=== PATIENT | female | born 1985 | race Caucasian/White ===

== ENCOUNTER 2016-08-09 10:45 | Emergency (ER) | payer OTHER ==
[~2016-08-09] VITALS: Ht 165.1 cm; Wt 86.0 kg
[2016-08-09 10:48] VITALS: Ht 165.1 cm; Wt 86.0 kg
[2016-08-09] MEDS ORDERED: morphine 4 MG/ML VIAL IV STA (11:13)
[2016-08-09] MEDS ORDERED: SOD CHLORIDE 0.9% 1,000 ML IV STA (11:13)
[2016-08-09] MEDS ORDERED: ONDANSETRON 4 MG INJ IV STA (11:13)
[2016-08-09 11:41] LABS: ADD SCAN DIFF NO
[2016-08-09 11:43] LABS: BASOPHILS % 0.3 % (0.0-2.0); EOSINOPHILS # 0.1 10^3/ul (0.0-0.5); EOSINOPHILS % 0.6 % (0.0-7.0); HEMATOCRIT 41.8 % (37.0-47.0); HEMOGLOBIN 14.2 g/dl (12.0-16.0); LYMPHOCYTES % 32.8 % (15.0-51.0); MEAN CORPUSCULAR HEMOGLOBIN 29.5 pg (29.0-33.0); MEAN CORPUSCULAR VOLUME 86.7 fl (82.0-101.0); MEAN PLATELET VOLUME 9.9 fl (7.4-10.4); MONOCYTE # 0.5 10^3/ul (0.3-0.9); NEUTROPHIL # 5.4 10^3/ul (1.6-7.5); NEUTROPHILS % 59.7 % (39.0-77.0); PLATELET COUNT 271 10^3/UL (140-415); RED BLOOD COUNT 4.82 10^6/ul (4.20-5.40); RED CELL DISTRIBUTION WIDTH 12.9 % (11.5-14.5)
[2016-08-09 11:54] LABS: ADD UMIC YES; URINE BILIRUBIN (Dip) NEGATIVE (NEGATIVE); URINE BLOOD (Dip) NEGATIVE (NEGATIVE); URINE COLOR LT. YELLOW (YELLOW); URINE GLUCOSE (Dip) NEGATIVE (NEGATIVE); URINE KETONES (Dip) NEGATIVE (NEGATIVE); URINE LEUKOCYTE ESTERASE (Dip) 1+ (NEGATIVE); URINE NITRITE (Dip) NEGATIVE (NEGATIVE); URINE TOTAL PROTEIN (Dip) NEGATIVE (NEGATIVE); URINE UROBILINOGEN (Dip) 0.2 E.U./dL (0.1-1.0)
[2016-08-09 12:01] LABS: ALBUMIN 5.1 g/dl (3.3-4.9); ALBUMIN/GLOBULIN RATIO 1.45; BILIRUBIN,INDIRECT 0.2 mg/dl (0-1.1); BILIRUBIN,TOTAL 0.2 mg/dl (0.2-1.3); CALCIUM 9.4 mg/dl (8.4-10.2); CREATININE 0.74 mg/dl (0.44-1.00); POTASSIUM 3.9 mmol/L (3.5-5.1); TOTAL PROTEIN 8.6 g/dl (6.1-8.1)
--- NOTE | 2016-08-09 12:07 | RADRPT ---
PROCEDURE: Right upper quadrant abdominal ultrasound. CLINICAL INDICATION: Abdominal pain TECHNIQUE: Georges scale and color doppler ultrasound images of the right upper quadrant. COMPARISON: None FINDINGS: Pancreas: Visualized portions appear of normal echogenicity, no focal lesions. Liver: Morphology: Normal in size and contour. Echogenicity: Mildly increased echogenicity of the liver suggestive of hepatic steatosis. Focal lesions: 5.1 cm hypoechoic lesion present within the right lobe of the liver. Main portal vein: Patent with hepatopetal flow. Biliary System: Normal appearing gallbladder wall. 1.5 cm gallstone in the neck of the gallbladder. No intrahepatic biliary dilatation. Common bile duct measures 3.1 mm in maximal dimension. Kidneys: Right 10.9 cm in length. Right renal cortical thickness is preserved. Normal echogenicity. No hydronephrosis. No renal calculi. No focal lesions. No free fluid identified. IMPRESSION: Cholelithiasis without evidence of abnormal gallbladder wall thickening to suggest cholecystitis. Normal caliber of the intrahepatic and extrahepatic biliary system. 5.1 cm hypoechoic lesion within the right lobe of the liver. MRI of the liver with liver mass alexia col recommended for further evaluation. RPTAT: AADD .Tio Cortés MD, MD Date Time Electronically viewed and signed by .Tio Cortés MD, on 08/09/2016 12:07 .B/
--- NOTE | 2016-08-09 12:13 | ERD ---
ER Documentation Chief Complaint Date/Time DATE: 08/09/16 TIME: 12:10 Chief Complaint Complains of right upper quadrant abdominal pain HPI Patient is a 31-year-old female who presents to the ED with right upper quadrant pain that radiates to her back on and off for the last 3-4 months. She states that she was diagnosed with a liver tumor and had a recent biopsy and is planning on having another biopsy regarding this. She is being followed by her surgeon. States that the pain comes and goes in her right upper quadrant. States that she is sometimes nauseous but no vomiting. Last bowel movement was yesterday. No signs of constipation or diarrhea. She does not have a decrease in appetite and is tolerating food and fluids. Denies headache or dizziness. Denies chest pain or cough or shortness of breath. Denies leg pain or leg swelling. Patient had a recent CT scan 05/2016. ROS All systems reviewed and are negative except as per history of present illness. Medications Home Meds Active Scripts Nitrofurantoin Monohyd Macrocr* (Macrobid*) 100 Mg Capsr, 100 MG PO BID for 7 Days, CAP Prov:JESUS PINEDA-C 08/09/16 Ondansetron Hcl* (Zofran*) 4 Mg Tablet, 4 MG PO Q6H for NAUSEA AND/OR VOMITING, #30 TAB Prov:JESUS PINEDAC 08/09/16 Hydrocodone/Acetaminophen ([place] 5-325 Tablet) 1 Each Tablet, 1 TAB PO Q6H Y for PAIN, #7 TAB Prov:JESUS PINEDA-C 08/09/16 Allergies Allergies: Coded Allergies: No Known Allergy (Unverified , 08/09/16) PMhx/Soc Medical and Surgical Hx: pt denies Medical Hx, pt denies Surgical Hx History of Surgery: No Anesthesia Reaction: No Hx Neurological Disorder: No Hx Respiratory Disorders: No Hx Cardiac Disorders: No Hx Psychiatric Problems: No Hx Miscellaneous Medical Probl: Yes (liver tumor) Hx Alcohol Use: Yes (socially) Hx Substance Use: No Hx Tobacco Use: No Smoking Status: Never smoker FmHx Family History: No coronary disease, No diabetes, No other Physical Exam Vitals Vital Signs Date Time Temp Pulse Resp B/P Pulse Ox O2 Delivery O2 Flow Rate FiO2 08/09/16 10:48 98.6 89 20 137/81 98 Physical Exam GENERAL: Well-developed, well-nourished female. Appears in no acute distress. HEAD: Normocephalic, atraumatic. EYES: Pupils are equally reactive bilaterally. EOMs grossly intact. No conjunctival erythema. ENT: Moist mucous membranes. No uvula deviation. No kissing tonsils. No exudates. NECK: Supple. No lymphadenopathy or thyromegaly. No meningismus. negative kernig. negative brudinski. LUNG: Clear to auscultation bilaterally. No rhonchi, wheezing, rales or coarse breath sounds. HEART: Regular rate and rhythm. No murmurs, rubs or gallops. ABDOMEN: No scars, ecchymosis or rashes noted. Softand nondistended. Positive bowel sounds in all four quadrants. No rebound tenderness, no guarding. (-) McBurneys point tenderness. No CVA tenderness. Tenderness in the right upper quadrant. BACK: No midline tenderness. Extremities: Equal pulses bilaterally. No peripheral clubbing, cyanosis or edema. No unilateral leg swelling. NEUROLOGIC: Alert and oriented. Moving all four extremities. 5/5 strength in all extremities. Normal speech. Steady gait. SKIN: Normal color. Warm and dry. No rashes or lesions. Capillary refill < 2 seconds Result Diagram: 08/09/16 1128 08/09/16 1128 Results 24 hrs Laboratory Tests Test 08/09/16 11:28 White Blood Count 9.010^3/ul Red Blood Count 4.8210^6/ul Hemoglobin 14.2g/dl Hematocrit 41.8% Mean Corpuscular Volume 86.7fl Mean Corpuscular Hemoglobin 29.5pg Mean Corpuscular Hemoglobin Concent 34.0g/dl Red Cell Distribution Width 12.9% Platelet Count 25293^3/UL Mean Platelet Volume 9.9fl Neutrophils % 59.7% Lymphocytes % 32.8% Monocytes % 6.0% Eosinophils % 0.6% Basophils % 0.3% Nucleated Red Blood Cells % 0.0/100WBC Neutrophils # 5.410^3/ul Lymphocytes # 3.010^3/ul Monocytes # 0.510^3/ul Eosinophils # 0.110^3/ul Basophils # 0.010^3/ul Nucleated Red Blood Cells # 0.010^3/ul Urine Color LT. YELLOW Urine Clarity CLEAR Urine pH 6.0 Urine Specific [place] 1.020 Urine Ketones NEGATIVE Urine Nitrite NEGATIVE Urine Bilirubin NEGATIVE Urine Urobilinogen 0.2 E.U./dL Urine Leukocyte Esterase 1+ Urine Microscopic RBC NONE SEEN/HPF Urine Microscopic WBC 2-5/HPF Urine Squamous Epithelial Cells FEW Urine Bacteria OCCASIONAL Urine Hemoglobin NEGATIVE Urine Glucose NEGATIVE% Urine Total Protein NEGATIVE Sodium Level 142mmol/L Potassium Level 3.9mmol/L Chloride Level 104mmol/L Carbon Dioxide Level 26mmol/L Anion Gap 16 Blood Urea Nitrogen 10mg/dl Creatinine 0.74mg/dl Glucose Level 123mg/dl Calcium Level 9.4mg/dl Total Bilirubin 0.2mg/dl Direct Bilirubin 0.00mg/dl Indirect Bilirubin 0.2mg/dl Aspartate Amino Transf (AST/SGOT) 20IU/L Alanine Aminotransferase (ALT/SGPT) 35IU/L Alkaline Phosphatase 71IU/L Total Protein 8.6g/dl Albumin 5.1g/dl Globulin 3.50g/dl Albumin/Globulin Ratio 1.45 Lipase 68U/L Current Medications Medications (Trade) Dose Ordered Sig/Flavio Route PRN Reason Start Time Stop Time Status Last Admin Dose Admin Sodium Chloride (NS) 1,000 ml @ 1,000 mls/hr Q1H STAT IV 08/09/16 11:13 08/09/16 12:12 DC 08/09/16 11:21 Morphine Sulfate (morphine) 4 mg ONCE STAT IV 08/09/16 11:13 08/09/16 11:15 DC 08/09/16 11:20 Ondansetron HCl (Zofran Inj) 4 mg ONCE STAT IV 08/09/16 11:13 08/09/16 11:15 DC 08/09/16 11:21 Procedures/MDM ER COURSE: I kept the patient and/or family informed of laboratory and diagnostic imaging results throughout the emergency room course. EKG, MONITORS, & DIAGNOSTIC IMAGING: [place] [id number] Radiology Main Line: [phone] DIAGNOSTIC IMAGING REPORT Patient: VONNIE VARELA : 1985 Age: 31 Sex: F MR #: [id number] DOS: 08/09/16 0000 Ordering MD: JESUS PINEDA PA-C Location: [facility] Room/Bed: PROCEDURE: Right upper quadrant abdominal ultrasound. CLINICAL INDICATION: Abdominal pain TECHNIQUE: Georges scale and color doppler ultrasound images of the right upper quadrant. COMPARISON: None FINDINGS: Pancreas: Visualized portions appear of normal echogenicity, no focal lesions. Liver: Morphology: Normal in size and contour. Echogenicity: Mildly increased echogenicity of the liver suggestive of hepatic steatosis. Focal lesions: 5.1 cm hypoechoic lesion present within the right lobe of the liver. Main portal vein: Patent with hepatopetal flow. Biliary System: Normal appearing gallbladder wall. 1.5 cm gallstone in the neck of the gallbladder. No intrahepatic biliary dilatation. Common bile duct measures 3.1 mm in maximal dimension. Kidneys: Right 10.9 cm in length. Right renal cortical thickness is preserved. Normal echogenicity. No hydronephrosis. No renal calculi. No focal lesions. No free fluid identified. IMPRESSION: Cholelithiasis without evidence of abnormal gallbladder wall thickening to suggest cholecystitis. Normal caliber of the intrahepatic and extrahepatic biliary system. 5.1 cm hypoechoic lesion within the right lobe of the liver. MRI of the liver with liver mass protocol recommended for further evaluation. RPTAT: AADD .Tio Cortés MD, MD Date Time Electronically viewed and signed by .Tio Cortés MD, MD on 08/09/2016 12:07 .B/ CC: JESUS PINEDA PA-C MEDICATIONS Zofran and morphine. Tolerated well with no adverse reaction. LAB INTERPRETATION: CBC showed no evidence of systemic infection or severe anemia. CMP showed no evidence of electrolyte abnormalities, severe acidosis, alkalosis, renal failure , or liver disease. Lipase showed no evidence of acute pancreatitis. UA shows no nitrites or hematuria but does show 1+ leukocytes. Urine test was negative. MEDICAL DECISION MAKING: This is a 31-year-old female who presents with right upper quadrant pain on and off for the last 4 months. Vital signs were reviewed. Patient is afebrile. Patient is not hypoxic. Patient is not toxic or ill-appearing. Patient's ultrasound shows cholelithiasis. Low suspicion for ACS, AAA, perforated ulcer, bowel obstruction, cholecystitis, choledocholithiasis, cholangitis, pancreatitis , hepatic abscess, appendicitis, diverticulitis, gastroenteritis, hepatitis, peptic ulcer disease. Her ultrasound shows a 5.1 cm hypoechoic lesion within the right lobe of the liver. Patient is following up with her specialist regarding this lesion. Patient also has a UTI. Low suspicion for ovarian torsion, PID, tuboovarian abscess, ectopic , bowel obstruction, pyelonephritis, appendicitis, cervicitis, septic , molar , HELLP syndrome, preeclampsia, eclampsia, placenta previa, placenta abruptia. I reexamined patient after administration of medication and she stated improvement in her symptoms. DISCHARGE: At this time, patient is stable for discharge and outpatient management with no new complaints during the ER course. Patient was sent home with Sumeet Hallman and Balbir copy of all imaging reports and laboratory studies were given to patient patient to follow-up with her specialist regarding her liver lesion.. Patient will be discharged home with instructions to recheck for new or worsening symptoms such as fever, nausea, weakness, LOC and to follow up with primary care in the next 1-2 days. Patient was advised to return to the ER for any new or worsening symptoms. Plan was discussed and patient and/or family understands and agrees. Home instructions were given. Departure Diagnosis: Primary Impression: Cholelithiasis Cholelithiasis location: other site Biliary obstruction: without biliary obstruction Qualified Code: K80.80 - Biliary calculus of other site without obstruction Additional Impression: Cystitis Condition: Stable JESUS PINEDA PA-C Aug 09, 2016 12:13
[2016-08-09 12:21] LABS: URINE RBCS NONE SEEN /HPF (0)
[2016-08-09 12:22] LABS: BACTERIA,URINE OCCASIONAL; SQUAMOUS EPITHELIAL CELL,UR FEW
[2016-08-09] MEDS ORDERED: HYDR-906 PO (12:31)
[2016-08-09] MEDS ORDERED: ONDA4TAB8 PO (12:32)
[2016-08-09] MEDS ORDERED: NITR-58 PO (12:38)
[2016-08-09 13:05] VITALS: BP 138/66; PULSE 77; RESP 20; TEMP 97.9
== END 2016-08-09 13:05 | disposition home or self-care (01) ==
LOC: FTE 10:45
DX: K80.80 Other cholelithiasis without obstruction (principal); N30.90 Cystitis, unspecified without hematuria; R11.0 Nausea
CPT/HCPCS: 76705; 80053; 81001; 83690; 85025; J2270; J2405; J7030; 36415; 96374; 96375